=== PATIENT | male | born 1995 | race Caucasian/White ===

== ENCOUNTER 2025-03-26 22:53 | Emergency (ER) | payer BC ==
[~2025-03-26] VITALS: Ht 170.2 cm; Wt 84.0 kg
[2025-03-26 22:58] VITALS: O2SAT 100
[2025-03-26] MEDS: ONDANSETRON HCL 4MG/2ML INJ IV ONE (23:30)
[2025-03-26] MEDS ORDERED: ONDANSETRON 4MG ODT PO ONE (23:30)
[2025-03-26] MEDS: SODIUM CHLORIDE 0.9% 1,000 ML IV ONE (23:30)
[2025-03-26 23:47] LABS: BASOPHILS % 0.4 % (0.0-2.0); EOSINOPHILS % 0.3 % (0.0-5.0); HEMATOCRIT. 46.5 % (42.0-52.0); HEMOGLOBIN. 15.5 g/dL (14.0-18.0); LYMPHOCYTES % 15.3 % (20.0-50.0); MEAN PLATELET VOLUME 8.5 fl (7.4-10.4); MONOCYTES % 4.4 % (2.0-8.0); NEUTROPHILS % 79.6 % (40.0-76.0); PLATELET 218 x1000/uL (130-400); RED BLOOD CELL COUNT 5.32 mill/uL (4.7-6.1); RED CELL DISTRIBUTION WIDTH 13.7 % (11.6-14.6)
[2025-03-26 23:59] LABS: CREATININE 1.0 mg/dL (0.6-1.3)
[2025-03-27] LABS: UREA NITROGEN BLOOD 9 mg/dL (9-23)
[2025-03-27 00:01] LABS: ASPARTATE AMINOTRANSFERASE 19 IU/L (<34)
[2025-03-27 00:02] LABS: BILIRUBIN DIRECT 0.3 mg/dL (<=3.0); BILIRUBIN TOTAL 1.0 mg/dL (0.1-1.0); PROTEIN TOTAL 8.0 g/dL (6.0-8.3)
[2025-03-27] MEDS ORDERED: ONDA4TAB50 MT (02:59)
[2025-03-27 03:39] VITALS: BP 107/53; PULSE 61; RESP 12; TEMP 36.9; O2SAT 100
== END 2025-03-27 03:49 | disposition home or self-care (01) ==
LOC: ER 22:53
DX: K22.6 Gastro-esophageal laceration-hemorrhage syndrome (principal); R11.2 Nausea with vomiting, unspecified
CPT/HCPCS: 99283; 96374; 96361; 80076; 80048; 83690; 85025; 36415; J7030; J2405